=== PATIENT | female | born 1935 | race Caucasian/White ===

== ENCOUNTER → 2017-02-05 | Outpatient (CLI) | payer OTHER ==
[~2017-02-05] MED LIST: ATENOLOL25 MG PO; DONEPEZIL HCL10 MG PO; DOXYCYCLINE100 M3 PO; FLUOXETINE20 MG PO; HYDROXYCHLOROQ200 M1 PO; IBU800 M1 PO; LASIX40 MG PO; LEVOTHYROXINE0.1 M1 PO; LISINOPRIL10 MG PO; MOBIC15 MG PO; PANTOPRAZOLE SO40 MG PO; PLAQUENIL200 MG PO; PROZAC10 MG PO; SIMVASTATIN80 MG PO; SYNTHROID0.1 MG PO; TYLENOL ARTHRI650 MG PO; ZOCOR80 MG PO
== END | disposition home or self-care (01) ==
LOC: RAD 14:39
DX: J43.9 Emphysema, unspecified (principal); K44.9 Diaphragmatic hernia without obstruction or gangrene; I51.7 Cardiomegaly; Q25.46 Tortuous aortic arch; M51.34 Other intervertebral disc degeneration, thoracic region; M40.294 Other kyphosis, thoracic region; Z98.890 Other specified postprocedural states

== ENCOUNTER 2017-06-04 11:17 | Inpatient (IN) | payer OTHER ==
[~2017-06-04] VITALS: Ht 152.4 cm; Wt 49.0 kg
[2017-06-04] VITALS (10 sets, daily range): BP systolic 141–187; BP diastolic 49–79
[2017-06-04 11:54] LABS: BASO % 0.4 % (0.0-1.0); EOS # 0.1 10*3/uL (0.0-0.4); EOS % 1.1 % (1.0-4.0); HEMATOCRIT 37.8 % (37.0-47.0); HEMOGLOBIN 12.8 g/dl (12.0-16.0); LYMPH # 1.4 10*3/uL (1.3-4.4); LYMPH % 14.7 % (27.0-41.0); MEAN CELL VOLUME 94.3 fl (81.0-99.0); MEAN CORPUSCULAR HGB 31.9 pg (27.0-31.0); MEAN CORPUSCULAR HGB CONC 33.9 g/dl (33.0-37.0); MEAN PLATELET VOLUME 9.7 fl (9.6-12.3); MONO # 0.6 10*3/uL (0.1-1.0); MONO % 6.5 % (3.0-9.0); NEUT # 7.3 10*3/uL (2.3-7.9); PLATELET COUNT AUTOMATED 180 10*3/uL (130-400); RED BLOOD COUNT 4.01 10*6/uL (4.10-5.10); WHITE BLOOD COUNT 9.5 10*3/uL (4.8-10.8)
[2017-06-04 12:11] LABS: ALBUMIN 3.6 gm/dl (3.1-4.5); ALKALINE PHOSPHATASE 92 U/L (45-117); BUN 20 mg/dl (7-24); CHLORIDE 103 mmol/L (98-107); CREATININE 0.69 mg/dL (0.55-1.02); POTASSIUM 3.7 mmol/L (3.5-5.1); SGOT/AST 23 IU/L (3-35); SGPT/ALT 13 U/L (12-78); SODIUM 139 mmol/L (136-145); TOTAL PROTEIN 7.4 gm/dL (6.4-8.2)
[2017-06-04 12:12] LABS: TROPONIN I < 0.015 ng/ml (<0.045)
[2017-06-04] MEDS ORDERED: SIMVASTATIN80 MG PO (15:34)
[2017-06-04] MEDS ORDERED: BENTYL10 MG PO (15:35)
[2017-06-04] MEDS ORDERED: NAMZARIC 28 MG1 EACH PO (15:37)
[2017-06-04] MEDS ORDERED: IRON325 M1 PO (15:37)
[2017-06-04] MEDS ORDERED: VITAMIN D5000 UNIT PO (15:38)
[2017-06-04] MEDS ORDERED: PROBIOTIC & AC1 EACH PO (15:43)
[2017-06-04] MEDS ORDERED: BLACK COHOSH40 M2 PO (15:45)
[2017-06-05] VITALS: BP 148/50
[2017-06-05 04:00] VITALS: BP 145/51
[2017-06-05 06:01] LABS: BASO % 0.6 % (0.0-1.0); EOS # 0.2 10*3/uL (0.0-0.4); EOS % 2.7 % (1.0-4.0); HEMATOCRIT 34.7 % (37.0-47.0); HEMOGLOBIN 11.7 g/dl (12.0-16.0); LYMPH # 1.3 10*3/uL (1.3-4.4); LYMPH % 19.1 % (27.0-41.0); MEAN CELL VOLUME 96.9 fl (81.0-99.0); MEAN CORPUSCULAR HGB 32.7 pg (27.0-31.0); MEAN CORPUSCULAR HGB CONC 33.7 g/dl (33.0-37.0); MEAN PLATELET VOLUME 9.7 fl (9.6-12.3); MONO # 0.6 10*3/uL (0.1-1.0); MONO % 8.5 % (3.0-9.0); NEUT # 4.6 10*3/uL (2.3-7.9); PLATELET COUNT AUTOMATED 163 10*3/uL (130-400); RED BLOOD COUNT 3.58 10*6/uL (4.10-5.10); RED CELL DISTRI WIDTH 13.2 % (0-14.5); WHITE BLOOD COUNT 6.7 10*3/uL (4.8-10.8)
[2017-06-05 06:31] LABS: BUN 18 mg/dl (7-24); CHLORIDE 105 mmol/L (98-107); CHOLESTEROL 160 mg/dL (<200); CREATININE 0.58 mg/dL (0.55-1.02); PHOSPHOROUS 3.2 mg/dL (2.5-4.9); POTASSIUM 4.1 mmol/L (3.5-5.1); SGOT/AST 19 IU/L (3-35); SGPT/ALT 13 U/L (12-78); SODIUM 142 mmol/L (136-145)
[2017-06-05 06:38] LABS: ALKALINE PHOSPHATASE 77 U/L (45-117); FREE T4 1.38 ng/dl (0.76-1.46); HDL CHOLESTEROL 97 mg/dl (40-60); LDL CHOLESTEROL 50 mg/dL (9-159); TOTAL PROTEIN 6.3 gm/dL (6.4-8.2); TRIGLYCERIDES 64 mg/dl (<150); VLDL CHOLESTEROL 13 mg/dL (6-40)
[2017-06-05 08:00] VITALS: BP 138/52
[2017-06-05 08:24] LABS: VITAMIN D, 25-HYDROXY 69.2 ng/mL (30-100)
[2017-06-05 12:00] VITALS: BP 129/58
[2017-06-05] MEDS ORDERED: LISINOPRIL20 MG PO (13:14)
== END 2017-06-05 14:45 | disposition home or self-care (01) | DRG 305 ==
LOC: ED 11:17 → 5E 13:04 → EDHOLD 13:04 → 5E 13:31
PROVIDERS: Hospitalist; Nurse Practitioner Family; ADMIT Internal Medicine
DX: I16.0 Hypertensive urgency (principal); F03.90 Unspecified dementia, unspecified severity, without behavioral disturbance, psychotic disturbance, mood disturbance, and anxiety; M06.00 Rheumatoid arthritis without rheumatoid factor, unspecified site; E03.9 Hypothyroidism, unspecified; F41.8 Other specified anxiety disorders; I10 Essential (primary) hypertension; K21.9 Gastro-esophageal reflux disease without esophagitis; E78.2 Mixed hyperlipidemia; Z88.0 Allergy status to penicillin; Z88.2 Allergy status to sulfonamides; Z91.81 History of falling; Z85.42 Personal history of malignant neoplasm of other parts of uterus; Z98.891 History of uterine scar from previous surgery; Z90.49 Acquired absence of other specified parts of digestive tract; Z98.51 Tubal ligation status; Z82.49 Family history of ischemic heart disease and other diseases of the circulatory system; Z82.5 Family history of asthma and other chronic lower respiratory diseases; Z90.710 Acquired absence of both cervix and uterus; Z79.899 Other long term (current) drug therapy

== ENCOUNTER 2018-02-18 09:53 | Inpatient (IN) | payer OTHER ==
[~2018-02-18] VITALS: Ht 152.4 cm; Wt 48.6 kg
[2018-02-18] VITALS (13 sets, daily range): BP systolic 110–196; BP diastolic 41–69
--- NOTE | ~2018-02-18 | EKG ---
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
--- NOTE | ~2018-02-18 | O ---
[place], [place] OPERATIVE NOTE NAME: ELIZABETH JACKSON UNIT #: [id number] ROOM: 428 DOCTOR: SABRINA WILD,MESERET BIRTHDATE: [birth year] DOS: 02/18/2018 INDICATION: An 82 years old presented with chief complaint of lower GI bleed. Case has been discussed with her son. She is not on any blood thinners including anticoagulants or antiplatelets. The patient has been on iron, darker stool in general. However, at this time, she has had red blood in the stool. PROCEDURE: Today's procedure part of investigation is colonoscopy. PREMEDICATION: Propofol. SCOPE: Olympus forward-viewing colonoscope 10L video. REPORT: After putting the patient in left lateral position and application of lubricant to the scope, the scope was introduced. Thereafter, under direct visualization, advanced through the length of colon with some difficulty. However, scope was negotiated to mid transverse colon, diverticulosis and retained solid stool was encountered, left side of the colon appears to be benign. Diverticulosis is [id number]. No point of bleeding was noticed. There was no residual blood in the colon. There was no gross hemorrhoids. The patient extubated, tolerated the procedure well. IMPRESSION: Limited colonoscopy, diverticulosis, retained stool, no active bleeding noticed. This patient most likely has bled from a superficial abrasion to the rectal vasculature. PLAN: At the present time, I am going to go ahead and feed her soft diet to regular as tolerated. Another set of H and H can be done tomorrow. If there is no drop, then she can be discharged. Thank you very much indeed. MESERET BENNETT MD CM:OPRECORD:OPERATIVE NOTE [id number] [id number] MESERET BENNETT MD 02/19/18 0237 interface
--- NOTE | ~2018-02-18 | CON ---
[place], [place] REPORT OF CONSULTATION NAME: ELIZABETH JACKSON UNIT #: [id number] ROOM: 428 DOCTOR: SABRINA WILDMESERET BIRTHDATE: [birth year] DOS: 02/18/2018 GASTROENDOSCOPIC CONSULTATION HISTORY OF PRESENT ILLNESS: An 82 years old lady, who has presented with the family to Emergency Room with complaint of bright blood per rectum, they are concerned. The patient has not been on blood thinners. The patient's H and H has been 11.6 and 35.3. INR was 1.0. Comprehensive metabolic panel, GFR greater than 60. Electrolytes balance, liver function test normal. Troponin within normal limit. PAST MEDICAL HISTORY: Hypertension, hyperlipidemia, dementia, depression, hypothyroidism, rheumatoid arthritis, and uterine CA. PAST SURGICAL HISTORY: Appendectomy, hysterectomy, exploratory laparotomy, cholecystectomy, , and incisional hernia repair. SOCIAL HISTORY: Nonsmoker, nonalcohol consumer. FAMILY HISTORY: Supportive family, unrelated to her presentation. ALLERGIES: PENICILLIN AND SULFA. MEDICATIONS: List has been reviewed. There are no anticoagulants or antiplatelets on board. The patient has been on ferrous sulfate 325 mg. REVIEW OF SYSTEMS: In general, cannot be obtained from her due to cognitive compromise. PHYSICAL EXAMINATION: GENERAL: Reveals a comfortable patient, not toxic. VITAL SIGNS: Stable, afebrile. HEENT: Head normocephalic, nontraumatic. Mouth and buccal mucosa benign. Nose nonobstructed, nondeviated. No evidence of bleeding. NECK: Supple, no thyromegaly, no cervical lymphadenopathy. CHEST: Symmetric anatomy, no wheeze, no rhonchi. HEART: Normal sinus rhythm, no gallop, no murmur. ABDOMEN: Soft. No hepato-organomegaly. Bowel sounds present. No pulsatile mass. EXTREMITIES: No cyanosis, no pedal edema. NEUROLOGIC: Alert, slow orientation, and hard of hearing. Labs reviewed, records reviewed. CBC, H and H of 11 and 35, white blood cells 6.5. Otherwise, records have been reviewed. Troponin has been negative. IMPRESSION: Lower gastrointestinal bleed, etiology to be defined, dementia, hypertension, anxiety, depression, hypothyroidism, and osteoarthritis. PLAN: We are going to proceed with colonoscopy. [place], [place] REPORT OF CONSULTATION NAME: ELIZABETH JACKSON UNIT #: [id number] ROOM: 428 DOCTOR: SABRINA WILD,MESERET BIRTHDATE: [birth year] Thank you very much indeed. MESERET BENNETT MD CM:CONSTR:REPORT OF CONSULTATION 1545 02/19/18 0229 interface
[~2018-02-18 09:53] MED LIST changes: +BENTYL10 MG PO; +BLACK COHOSH40 M2 PO; +IRON325 M1 PO; +LISINOPRIL20 MG PO; +NAMZARIC 28 MG1 EACH PO; +PROBIOTIC & AC1 EACH PO; +VITAMIN D5000 UNIT PO
[2018-02-18 10:27] LABS: BASO % 0.6 % (0.0-1.0); EOS # 0.1 10*3/uL (0.0-0.4); EOS % 1.4 % (1.0-4.0); HEMATOCRIT 35.3 % (37.0-47.0); HEMOGLOBIN 11.6 g/dl (12.0-16.0); LYMPH # 1.1 10*3/uL (1.3-4.4); LYMPH % 17.4 % (27.0-41.0); MEAN CORPUSCULAR HGB 31.9 pg (27.0-31.0); MEAN CORPUSCULAR HGB CONC 32.9 g/dl (33.0-37.0); MEAN PLATELET VOLUME 9.6 fl (9.6-12.3); MONO # 0.5 10*3/uL (0.1-1.0); MONO % 8.3 % (3.0-9.0); NEUT # 4.7 10*3/uL (2.3-7.9); PLATELET COUNT AUTOMATED 157 10*3/uL (130-400); RED BLOOD COUNT 3.64 10*6/uL (4.10-5.10); RED CELL DISTRI WIDTH 13.2 % (0-14.5); WHITE BLOOD COUNT 6.5 10*3/uL (4.8-10.8)
[2018-02-18 10:39] LABS: ACT PARTIAL THROMBO TIME 24.7 SECONDS (20.8-31.5)
[2018-02-18 10:51] LABS: ALKALINE PHOSPHATASE 80 U/L (45-117); BUN 18 mg/dl (7-24); CHLORIDE 107 mmol/L (98-107); CREATININE 0.62 mg/dL (0.55-1.02); POTASSIUM 3.9 mmol/L (3.5-5.1); SGOT/AST 17 IU/L (3-35); SGPT/ALT 11 U/L (12-78); SODIUM 140 mmol/L (136-145); TOTAL PROTEIN 6.7 gm/dL (6.4-8.2)
[2018-02-18] MEDS ORDERED: OMEPRAZOLE40 MG PO (12:46)
[2018-02-19] VITALS: BP 142/68; BP 188/62
[2018-02-19 06:31] LABS: BASO % 0.5 % (0.0-1.0); EOS # 0.1 10*3/uL (0.0-0.4); EOS % 1.6 % (1.0-4.0); HEMATOCRIT 33.5 % (37.0-47.0); HEMOGLOBIN 11.1 g/dl (12.0-16.0); LYMPH # 1.3 10*3/uL (1.3-4.4); LYMPH % 20.6 % (27.0-41.0); MEAN CELL VOLUME 96.5 fl (81.0-99.0); MEAN CORPUSCULAR HGB CONC 33.1 g/dl (33.0-37.0); MONO # 0.5 10*3/uL (0.1-1.0); MONO % 7.5 % (3.0-9.0); NEUT # 4.3 10*3/uL (2.3-7.9); NEUT % 69.5 % (47.0-73.0); PLATELET COUNT AUTOMATED 154 10*3/uL (130-400); RED BLOOD COUNT 3.47 10*6/uL (4.10-5.10); RED CELL DISTRI WIDTH 13.1 % (0-14.5); WHITE BLOOD COUNT 6.1 10*3/uL (4.8-10.8)
[2018-02-19 06:52] LABS: ALBUMIN 2.8 gm/dl (3.1-4.5); ALKALINE PHOSPHATASE 78 U/L (45-117); BUN 14 mg/dl (7-24); CHLORIDE 108 mmol/L (98-107); CHOLESTEROL 133 mg/dL (<200); CREATININE 0.46 mg/dL (0.55-1.02); FREE T4 1.55 ng/dl (0.76-1.46); HDL CHOLESTEROL 72 mg/dl (40-60); LDL CHOLESTEROL 49 mg/dL (9-159); PHOSPHOROUS 2.8 mg/dL (2.5-4.9); POTASSIUM 3.4 mmol/L (3.5-5.1); SGOT/AST 15 IU/L (3-35); SGPT/ALT 9 U/L (12-78); SODIUM 142 mmol/L (136-145); TOTAL PROTEIN 5.9 gm/dL (6.4-8.2); TRIGLYCERIDES 61 mg/dl (<150); VLDL CHOLESTEROL 12 mg/dL (6-40)
[2018-02-19 07:54] LABS: VITAMIN D, 25-HYDROXY 89.6 ng/mL (30-100)
[2018-02-19 12:00] VITALS: BP 170/90
== END 2018-02-19 12:52 | disposition home or self-care (01) | DRG 378 ==
LOC: ED 09:53 → EDHOLD 11:16 → 4E 11:30
PROVIDERS: Internal Medicine; Nurse Practitioner Family
PROC: 0DJD8ZZ Inspection of Lower Intestinal Tract, Via Natural or Artificial Opening Endoscopic (ICD-10-PCS; principal; 2018-02-18)
DX: K92.2 Gastrointestinal hemorrhage, unspecified (principal); E44.0 Moderate protein-calorie malnutrition; K56.7 Ileus, unspecified; D64.9 Anemia, unspecified; K62.89 Other specified diseases of anus and rectum; R73.9 Hyperglycemia, unspecified; F03.90 Unspecified dementia, unspecified severity, without behavioral disturbance, psychotic disturbance, mood disturbance, and anxiety; F41.8 Other specified anxiety disorders; E03.9 Hypothyroidism, unspecified; E78.5 Hyperlipidemia, unspecified; K57.90 Diverticulosis of intestine, part unspecified, without perforation or abscess without bleeding; I10 Essential (primary) hypertension; M06.9 Rheumatoid arthritis, unspecified; M19.90 Unspecified osteoarthritis, unspecified site; K21.9 Gastro-esophageal reflux disease without esophagitis; Z79.899 Other long term (current) drug therapy; Z85.42 Personal history of malignant neoplasm of other parts of uterus; Z90.49 Acquired absence of other specified parts of digestive tract; Z90.710 Acquired absence of both cervix and uterus; Z98.891 History of uterine scar from previous surgery; Z88.0 Allergy status to penicillin; Z88.2 Allergy status to sulfonamides; Z82.49 Family history of ischemic heart disease and other diseases of the circulatory system; Z80.8 Family history of malignant neoplasm of other organs or systems

== ENCOUNTER 2018-10-18 10:07 | Inpatient (IN) | payer OTHER ==
[~2018-10-18] VITALS: Ht 154.9 cm; Wt 45.1 kg
--- NOTE | ~2018-10-18 | PR ---
[place], [place] PROGRESS NOTE NAME: ELIZABETH JACKSON UNIT #: [id number] ROOM: 426 DOCTOR: ASHANTI WILD,DANIELLA Campuzano BIRTHDATE: [birth year] DOS: SUBJECTIVE: The patient barely opens her eyes when spoken to and touched. OBJECTIVE: VITAL SIGNS: Blood pressure 150/80, heart rate of 100 beats per minute, afebrile. GENERAL: The patient barely wakes up. Generalized weakness and lethargy, but able to move all her extremities. IMPRESSION: 1. The patient with acute dehydration and disability, unable to eat and swallow, has been hydrated with IV fluids. She does wake up, but otherwise very weak. The patient is being considered for hospice and situation has been discussed with patient's daughter. 2. Advanced adult failure to thrive and ambulatory dysfunction. The patient works with physical therapy. 3. Swallowing dysfunction. The patient is being followed by Speech Therapy and kept n.p.o. 4. Late onset Alzheimer's type dementia, be treated with Exelon patch. 5. Hypothyroidism, being replaced with IV thyroid. 6. Benign essential hypertension. Blood pressures are improving with full dose of clonidine patch. DANIELLA BURRELL MD CM:PNTRANS [id number] DANIELLA BURRELL MD 10/22/18 0642 interface
--- NOTE | ~2018-10-18 | DS ---
[place], [place] DISCHARGE SUMMARY NAME: ELIZABETH JACKSON UNIT #: [id number] ROOM: 426 DOCTOR: DANIELLA BURRELL MD BIRTHDATE: [birth year] DOS: 10/22/2018 DISCHARGE DIAGNOSES: 1. The patient is being discharged to hospice inpatient care. 2. Acute dehydration from inability to eat and swallow, swallowing dysfunction. 3. Advanced adult failure to thrive and ambulatory dysfunction. 4. Late onset Alzheimer's-type dementia. 5. Hypothyroidism. 6. Benign essential hypertension. 7. Mixed hyperlipidemia. HOSPITAL COURSE: The patient admitted to [facility] with a decline in her health status, urinary tract infection, not eating and getting dehydrated, very weak and unable to ambulate. After admission, the patient was treated for urinary tract infection with intravenous Zosyn hydration with normal saline and also peripheral parenteral nutrition was started. Urine cultures grew no bacteria and a consult was obtained with infectious disease specialist and they agreed with hospice consultation. Detailed discussion was held with the patient's daughter and family and they have requested the patient to be admitted to hospital under hospice care for end of life management. 1. Advanced adult failure to thrive. The patient worked with physical therapy and took bedsore and fall precautions. 2. Swallowing dysfunction. The patient underwent modified barium swallowing study and Speech Therapy were consulted and the patient could not tolerate any swallowing function and she was kept n.p.o. 3. Late onset Alzheimer's-type dementia, was treated with Exelon patch. 4. Hypothyroidism was treated with thyroid supplements intravenously. 5. Benign essential hypertension. Blood pressures were managed by clonidine patch. 6. Fevers were controlled with Tylenol rectally as needed. DISCHARGE MANAGEMENT: Clonidine patch 0.3 mg weekly. The patient to be kept on morphine and Ativan and atropine drops under hospice care. LABORATORY DATA: White cell count of 13,400, dropped from 20,000 at admission. BUN and creatinine 30 and 0.49. Sodium elevated at 155. Urine cultures were negative. Protein-calorie malnutrition, which is severe with an albumin level of 2.4 and declining. [place], [place] DISCHARGE SUMMARY NAME: ELIZABETH JACKSNO UNIT #: [id number] ROOM: 426 DOCTOR: DANIELLA BURRELL MD BIRTHDATE: [birth year] DANIELLA BURRELL MD CM:LOIS [id number] DANIELLA BURRELL MD 10/22/18 1537 interface
--- NOTE | ~2018-10-18 | PROC NOTE ---
[place], [place] PROCEDURE NOTE NAME: ELIZABETH JACKSON UNIT #: [id number] ROOM: 412 DOCTOR: MILDRED CARRILLO BIRTHDATE: [birth year] DOS: 10/18/2018 MODIFIED BARIUM SWALLOW LOCATION: [facility]. ROOM: [facility]. BED: 1. ORDERING PHYSICIAN: Dr. Dhaliwal. RADIOLOGIST: Dr. Norman. BACKGROUND INFORMATION: The patient is an 83-year-old female who was seen for a modified barium swallow. This test was ordered to rule out aspiration as the patient has been noted with difficulty swallowing. The patient was admitted to the hospital with inability to ambulate and failure to thrive. She was recently hospitalized here from 10/07/2018-10/11/2018 with diagnoses including UTI, flu, and metabolic encephalopathy. Further significant medical history on this patient includes dementia, GERD, and hypertension. The patient is currently n.p.o. For today's assessment, the patient was alert, but with significant generalized weakness and fatigue. She was able to follow simple commands. Oral peripheral examination revealed edentulous status. Dry oral cavity was observed. Lingual and labial strength and range of motion were impaired. The patient was able to volitionally swallow; however, this was slow and weak. The patient was not receiving oxygen and respiratory status at rest appeared within functional limits. METHODS AND MATERIALS USED FOR THE EXAM: The patient was positioned in the lateral plane and the exam was viewed under fluoroscopy. The patient was presented with a variety of consistencies to assess swallowing skills including applesauce mixed with barium presented in quarter and half teaspoon amounts and nectar thick barium taken by spoon. ORAL PHASE: Reduced labial seal was observed with anterior loss noted. Bolus formation and transit were poor across consistencies. Transfer of the bolus was significantly impaired and appeared to move through the oral cavity with thick liquid by gravity. Piecemeal swallow was observed with pureed consistency. PHARYNGEAL PHASE: The pharyngeal swallow was noted to be weak and delayed with each consistency. There was no penetration or aspiration occurring with any consistency during this study. Residue was observed throughout the pharynx post-swallow. ESOPHAGEAL PHASE: This phase of the swallow was not formally assessed during this exam. IMPRESSION AND RECOMMENDATIONS: Based upon assessment results, this 83-year-old patient presents with a severe oral and moderate pharyngeal stage dysphagia. [place], [place] PROCEDURE NOTE NAME: ELIZABETH JACKSON UNIT #: [id number] ROOM: 412 DOCTOR: MILDRED CARRILLO BIRTHDATE: [birth year] Oral propulsion was poor across all trials. Piecemeal swallow was observed with the pureed. Her pharyngeal swallow was weak and delayed. Residue throughout the pharynx was observed across consistencies. The patient presents at high risk for aspiration. It is doubtful that she will be able to maintain nutrition orally due to her significant weakness, fatigue and severity of swallowing skills. N.p.o. is recommended at this time. In direct therapy will be conducted in an attempt to work toward improvement of safe swallow skills. Results and recommendations were shared with the patient's nurse who verbalized understanding. Thank you very much for this referral. Should you have any questions regarding this patient, please contact the speech pathologist at [phone]. MILDRED CARRILLO CM:PROCNOTE:PROCEDURE NOTE [id number] 1621 MILDRED CARRILLO
--- NOTE | ~2018-10-18 | WRIGHTHP ---
[place], [place] PATIENT HISTORY AND PHYSICAL EXAM NAME: ELIZABETH JACKSON [facility] #: [id number] UNIT #: [id number] ROOM: 412 DOCTOR: DANIELLA BURRELL MD BIRTHDATE: [birth year] DOS: 10/19/2018 HISTORY OF PRESENT ILLNESS: The patient is an 83-year-old female transferred from assisted living facility to [facility] for being unable to eat and appeared dehydrated. The patient's BUN and creatinine were found to be elevated to 45 and 0.89, and the patient was lethargic, much weaker than she was a few days earlier and she was not eating or drinking anything for a few days. The patient was admitted for further management with a DNR-CC code status. The patient was found to be dehydrated and having a urinary tract infection with a white cell count elevated to 20,000. No recent chest pain, shortness of breath, no GI or urinary symptoms, but the patient was found to have a residual of 600 mL when we performed a straight catheterization at the hospital. REVIEW OF SYSTEMS: CARDIOVASCULAR: No chest pains or palpitations. GASTROINTESTINAL: The patient unable to swallow, but otherwise no nausea, vomiting, diarrhea, or constipation. RESPIRATORY: No wheezing and shortness of breath. FAMILY HISTORY: Noncontributory. HOME MEDICATIONS: The patient was on vitamin D, Colace, iron, Plaquenil, Levothyroxine, lisinopril, Namzaric, omeprazole and simvastatin. ALLERGIES: Known allergies to PENICILLIN AND SULFA. FAMILY HISTORY: Noncontributory. PHYSICAL EXAMINATION: GENERAL: The patient is lethargic, in no visible distress. VITAL SIGNS: Blood pressure 155/61, heart rate of 83 beats per minute, breathing 20 times per minute, temperature 98.3 degrees Fahrenheit. CENTRAL NERVOUS SYSTEM: The patient with generalized weakness, cachexia and lethargic. Otherwise, able to move all extremities. LABORATORY DATA: White cell count of 13,700, reduced from 20,000 yesterday. BUN and creatinine were 45 and 0.89. Albumin low at 2.4. Barium swallowing study showed the patient unable to swallow. IMPRESSION: 1. Advanced adult failure to thrive, inability to swallow with urinary tract infection, delirium and lethargy, to be treated with IV antibiotics, hydration and normal saline, peripheral parenteral nutrition and the patient to be kept DNR-CC per her code status and followed closely. I made a call to Fabienne, her daughter and would like to discuss the patient's condition with her in detail. 2. Late onset Alzheimer's type dementia. We will continue Exelon patch. 3. Gastroesophageal reflux disease and esophagitis to be treated with IV Protonix. 4. Hypothyroidism. I will convert her levothyroxine to IV and continue [place], [place] PATIENT HISTORY AND PHYSICAL EXAM NAME: ELIZABETH JACKSON UNIT #: [id number] ROOM: [facility] DOCTOR: ASHANTI WILD,DANIELLA Campuzano BIRTHDATE: [birth year] treatment. 5. Mixed hyperlipidemia. Simvastatin is on hold. PLAN: The patient with significant adult failure to thrive and if she does not recover within a few days of initial treatment with hydration and nutrition, hospice consult will be considered. DANIELLA BURRELL MD CM:HISPHYS:PATIENT HISTORY AND PHYSICAL EXAMINATION 1027 1054 DANIELLA BURRELL MD 10/19/18 1053 interface
--- NOTE | ~2018-10-18 | CON ---
[place], [place] REPORT OF CONSULTATION NAME: ELIZABETH JACKSON UNIT #: [id number] ROOM: 412 DOCTOR: KARRI FARRELL MD BIRTHDATE: [birth year] DOS: 10/18/2018 REASON FOR CONSULTATION: Sepsis. CHIEF COMPLAINT: Transferred from skilled nursing because of difficulty in eating. HISTORY OF PRESENTING ILLNESS: This is an 83-year-old female who is coming from a skilled nursing facility because of difficulty in feeding and overall sick. The patient is not the best historian and currently very tired. History obtained is from her son who is at the bedside and has been taking care of her in last few days and has seen at skilled nursing. According to him, she is not complaining of any fever, chest pain, shortness of breath, cough; however, she had more difficulty eating a week ago. She was able to eat all by herself and had a good appetite, but lately her appetite has gone down and she was not able to swallow. She has failed a bedside swallow eval also and possibly may need TPN. She was recently in the hospital and was treated for urinary tract infection as well as influenza and pneumonia, discharged on October 11 on Levaquin, Tamiflu. At this time on admission, it was found after Shirley replacement, she had 600 mL of urine retention. Her urinalysis shows 5-10 wbc's. Her urine cultures are in process. Recent admission on October 07, her urine grew 50,000 colonies of E. coli, which was pansensitive. She is PENICILLIN allergic, got Levaquin and had some choking-like sensation, itching and was changed to clindamycin, although she tolerated Levaquin few days ago. Her sputum cultures during last admission had heavy growth of Staph aureus, which was an MSSA. Her chest x-ray on October 07 showed no acute cardiopulmonary process and a repeat chest x-ray done today shows similar presentation. PAST MEDICAL HISTORY: Significant for dementia, small-bowel obstruction, hyperlipidemia, hypertension, hypothyroidism. PAST SURGICAL HISTORY: Includes history of ex-lap, hysterectomy, appendectomy, , cholecystectomy, incisional hernia repair. SOCIAL HISTORY: Include nonalcoholic, nonsmoker. No illicit drug use. FAMILY HISTORY: Father . Mother of emphysema. ALLERGIES: PENICILLIN, unclear kind of allergy; SULFA ANTIBIOTICS as well. HOME MEDICATIONS: Reviewed. REVIEW OF SYSTEMS: A 12-point review of systems has been done. Pertinent negatives and positives included in HPI, rest are noncontributory. PHYSICAL EXAMINATION: VITAL SIGNS: Current vitals include temperature 97.2, pulse rate of 92, respiratory rate 16, blood pressure 126/50, oxygen saturation 99% on room air. GENERAL: The patient is awake, but not completely alert and oriented. HEENT: Atraumatic, normocephalic. Currently whitish discoloration around her mouth because of the barium swallow test she had. Not cooperative for further [place], [place] REPORT OF CONSULTATION NAME: ELIZABETH JACKSON UNIT #: [id number] ROOM: 412 DOCTOR: KARRI FARRELL MD BIRTHDATE: [birth year] oral exam. CHEST: Air entry bilaterally equal. No wheeze or crackles. CARDIOVASCULAR: S1, S2 normal. No murmur, rubs or gallop. ABDOMEN: Soft, nontender, nondistended. EXTREMITIES: No pedal edema. NEUROLOGIC: Grossly intact. LABORATORY DATA AND IMAGING: Noted, mentioned in HPI. ASSESSMENT AND PLAN: 1. Leukocytosis, sepsis versus reactive, likely from dehydration. She has been recently treated for urinary tract infection with Escherichia coli, which was pansensitive and tolerated Levaquin at that time. 2. She has developed urinary retention. I would order a bladder scan and see if she has urinary retention. If she still has large amount of urine would recommend Shirley catheter placement for a few days. 3. Dysphagia. Currently the patient is on TPN. 4. I would hold off on antibiotics. She is not having any overt sign of sepsis. Continue to watch her off antibiotics and we will see improvement with hydration and fluid management. I discussed with the son as well. Thank you for your consult. Please call for any questions. Karri Farrell MD CM:CONSTR:REPORT OF CONSULTATION 174 10/18/18 9934 interface
--- NOTE | ~2018-10-18 | PR ---
[place], [place] PROGRESS NOTE NAME: ELIZABETH JACKSON UNIT #: [id number] ROOM: 412 DOCTOR: DANIELLA BURRELL MD BIRTHDATE: [birth year] DOS: 10/20/2018 SUBJECTIVE: The patient is very weak and lethargic, barely wakes up with stimulus. OBJECTIVE: VITAL SIGNS: Blood pressure 144/66, heart rate of 108 beats per minute, breathing 18 times per minute, afebrile. GENERAL APPEARANCE: The patient is alert and oriented x 3, in no visible distress, except for lethargy, generalized weakness, muscle wasting and emaciation. HEENT AND NECK: Exam within normal limits. CARDIOVASCULAR SYSTEM: Heart rate is regular in rate and rhythm. S1 and S2 normally audible. LUNGS: Clear to auscultation. ABDOMEN: Soft, nontender. No obvious organomegaly. Bowel sounds are present. EXTREMITIES: Without significant cyanosis or edema. IMPRESSION AND PLAN: 1. The patient with acute dehydration and inability to eat and swallow and drink. The patient's power of nursery helper and daughter have decided against tube feeding. The patient is being hydrated with IV fluids and was given peripheral parenteral nutrition yesterday until she became volume overloaded. The patient's hydration and nutrition was stopped and I am restarting her on normal saline for hydration. 2. The patient is being considered for hospice end of life care if she does not start eating soon. 3. Advance adult failure to thrive and ambulatory dysfunction. We are taking bedsore precautions, turning her every 2 hours and using air mattress. 4. Swallowing dysfunction. The patient is unable to eat, seen by Speech Therapy. 5. Late onset Alzheimer's type dementia, treated with Exelon patch. 6. Hypothyroidism. Thyroid is being replaced intravenously. 7. Benign essential hypertension, elevated blood pressures are being controlled with clonidine patch. [place], [place] PROGRESS NOTE NAME: ELIZABETH JACKSON UNIT #: [id number] ROOM: 412 DOCTOR: DANIELLA BURRELL MD BIRTHDATE: [birth year] DANIELLA BURRELL MD CM:[id number] DANIELLA BURRELL MD 10/20/18 1844 interface
[2018-10-18 10:05] VITALS: BP 154/59
--- NOTE | 2018-10-18 10:05 | NUR ---
A 83, admitted to , under the services of Dr. ASHANTI WILD,DANIELLA Campuzano with a diagnosis of FAILURE TO THRIVE, UNABLE TO AMBULATE. Chief complaint is PAIN. [facility] Monitor applied. Initial assessment completed. Vital signs taken and recorded. DR. ASHANTI WILD,DANIELLA Campuzano notified of admission to the unit. Orders received. See assessment for past medical history, medications and allergies. Patient and/or family oriented to unit. [facility] visitation policy reviewed. Clothing/patient valuable form completed. DEAN JEFF
[~2018-10-18 10:07] MED LIST changes: +BLACK COHOSH EX80 MG PO; +LEVOFLOXACIN750 M2 PO; +LEVOTHYROXINE100 MC1 PO; +OMEPRAZOLE40 MG PO; +PROBIOTIC1 EAC1 PO; +STOOL SOFTENER250 M2 PO; +TAMIFLU 75MG CA75 MG PO; +VITAMIN D5000 UNI1 PO; +Zestril,Prinivi40 MG PO
[2018-10-18] MEDS ORDERED: IRON325 M1 PO (10:24)
[2018-10-18] MEDS ORDERED: NAMZARIC 28 MG1 EACH PO (10:26)
--- NOTE | 2018-10-18 10:47 | NUR ---
NEW ORDERS RECEIEVED FROM . SEE LABS, MEDS, CONSULTS.
--- NOTE | 2018-10-18 11:56 | NUR ---
PHYSICAL THERAPY Nursing screen received. PT orders also received. Thank you. Evangelina Child,PT
[2018-10-18 12:00] VITALS: BP 174/49
[2018-10-18 12:42] LABS: HEMATOCRIT 46.8 % (37.0-47.0); HEMOGLOBIN 15.6 g/dl (12.0-16.0); MEAN CELL VOLUME 97.9 fl (81.0-99.0); MEAN CORPUSCULAR HGB 32.6 pg (27.0-31.0); MEAN CORPUSCULAR HGB CONC 33.3 g/dl (33.0-37.0); MEAN PLATELET VOLUME 9.4 fl (9.6-12.3); PLATELET COUNT AUTOMATED 301 10*3/uL (130-400); RED BLOOD COUNT 4.78 10*6/uL (4.10-5.10); RED CELL DISTRI WIDTH 13.4 % (0-14.5); WHITE BLOOD COUNT 20.2 10*3/uL (4.8-10.8)
[2018-10-18 13:02] LABS: ALBUMIN 2.4 gm/dl (3.1-4.5); ALKALINE PHOSPHATASE 79 U/L (45-117); BUN 45 mg/dl (7-24); CHLORIDE 109 mmol/L (98-107); CREATININE 0.89 mg/dL (0.55-1.02); POTASSIUM 3.8 mmol/L (3.5-5.1); SGOT/AST 25 IU/L (3-35); SGPT/ALT 17 U/L (12-78); SODIUM 143 mmol/L (136-145); TOTAL PROTEIN 7.7 gm/dL (6.4-8.2)
[2018-10-18 13:18] LABS: PLATELET SUFFICIENCY NORMAL (NORMAL); TOTAL CELLS COUNTED 100 #CELLS
--- NOTE | 2018-10-18 14:34 | NUR ---
CALLED FOR WBC OF 20.2. NEW ORDERS OBTAINED. SEE LABS, MAR.
--- NOTE | 2018-10-18 14:37 | NUR ---
LEFT WITH 'S OFFICE. SAID THEY WOULD PAGE HER.
--- NOTE | 2018-10-18 14:38 | NUR ---
PT DOWN FOR CXR AND MBS AT THIS TIME.
--- NOTE | 2018-10-18 14:54 | NUR ---
SPEECH PATHOLOGY MBS completed as per orders. This was ordered due to difficulty swallowing. Patient is currently NPO. Medical hx is significant for failure to thrive, dementia, GERD. Patient was alert during assessment but with significant generalized weakness. She was assessed with puree and nectar thick liquids, taken by spoon. Results revealed severe oral and moderate pharyngeal dysphagia. Oral propulsion was poor across all trials. Piecemeal swallow was observed with puree. The pharyngeal swallow was weak and delayed. There was no penetration or aspiration noted during the study. Residue throughout pharynx was observed across consistencies. Patient presents at high risk for aspiration. It is doubtful that patient will be able to maintain nutrition orally due to her significant weakness, fatigue and severity of swallow. NPO is recommended. Clinician will inform patient's nurse of results and recommendations. Indirect therapy will be conducted in an attempt to work toward improvement of safe swallow skills. Dictated report to follow. Thank you for this referral. MILDRED CARRILLO MSCCC-BOW MACHINE OPERATOR
--- NOTE | 2018-10-18 15:21 | NUR ---
NOTIFIED OF FAILED MBS RESULTS AND RECOMMENDATION OF NPO PER SPEECH. ORDERS FOR SPEECH TO FOLLOW DAILY WITH PT AND PPN. SPOKE WITH HLAEY IN PHARMACY, SAID HE WOULD ORDER IT FOR .
--- NOTE | 2018-10-18 15:43 | NUR ---
IV LEVAQUIN STOPPED AT THIS TIME. THIS NURSE NOTICED REDNESS CLIMBING HER ARM AFTER STARTING IV LEVAQUIN. NO OTHER SXS NOTED. NOTIFIED. ORDERS TO STOP LEVAQUIN AND START CLINDAMYCIN RECEIVED. SEE MAR.
[2018-10-18 15:58] LABS: BILIRUBIN 1+ (NEGATIVE); BLOOD NEGATIVE (NEGATIVE); CLARITY SL CLOUDY (CLEAR); COLOR YELLOW (YELLOW); GLUCOSE NEGATIVE (NEGATIVE); KETONE 1+ (NEGATIVE); LEUKO ESTERASE NEGATIVE (NEGATIVE); NITRITE NEGATIVE (NEGATIVE); PH 5.5 (5.0-9.0); SPECIFIC GRAVITY >= 1.030 (1.005-1.030); UROBILINOGEN 0.2 E.U./dl (0.2-1.0)
[2018-10-18 16:00] VITALS: BP 126/50
[2018-10-18 16:08] LABS: BACTERIA 2+; EPITHELIAL CELLS 0-2; RBC 0-2 rbc/hpf (0-2)
--- NOTE | 2018-10-18 16:48 | NUR ---
IN TO SEE PT AND SPEAKING WITH SON AT THIS TIME.
--- NOTE | 2018-10-18 18:26 | NUR ---
PT NOTED WITH RED, BLANCHABLE MUSHY HEELS. HEEL PROTECTORS APPLIED TO BILAT FEET.
[2018-10-18 20:00] VITALS: BP 153/79
--- NOTE | 2018-10-18 20:18 | NUR ---
SPOKE WITH DR PATEL REGARDING THE REQUESTED BLADDER SCAN RESULTS OF 120ML. NO NEW ORDERS.
--- NOTE | 2018-10-18 22:00 | NUR ---
PT FOUND AWAKE AND RESTLESS WITH BLOOD ON HER SHEETS. PT DID NOT APPEAR TO BE IN ANY DISTRESS BUT IS CONFUSED. IV RESTARTED. 22 IN THE LFA.
[2018-10-19] VITALS: BP 144/74
[2018-10-19 06:16] LABS: BASO % 0.1 % (0.0-1.0); HEMATOCRIT 41.5 % (37.0-47.0); HEMOGLOBIN 13.6 g/dl (12.0-16.0); LYMPH # 1.2 10*3/uL (1.3-4.4); LYMPH % 9.1 % (27.0-41.0); MEAN CELL VOLUME 96.7 fl (81.0-99.0); MEAN CORPUSCULAR HGB 31.7 pg (27.0-31.0); MEAN CORPUSCULAR HGB CONC 32.8 g/dl (33.0-37.0); MEAN PLATELET VOLUME 9.4 fl (9.6-12.3); MONO % 7.5 % (3.0-9.0); NEUT # 11.3 10*3/uL (2.3-7.9); NEUT % 82.9 % (47.0-73.0); PLATELET COUNT AUTOMATED 256 10*3/uL (130-400); RED BLOOD COUNT 4.29 10*6/uL (4.10-5.10); RED CELL DISTRI WIDTH 13.3 % (0-14.5); WHITE BLOOD COUNT 13.7 10*3/uL (4.8-10.8)
[2018-10-19 08:00] VITALS: BP 155/61
--- NOTE | 2018-10-19 09:00 | NUR ---
Facs Teacher in to see patient. She is able to answer few questions. She states she lives at home alone. She is unable to say if she uses an assistive device for ambulation or if she has any medical equipment at home. Discharge plan undecided at this time.
--- NOTE | 2018-10-19 09:15 | NUR ---
SPEECH PATHOLOGY Patient was seen for dysphagia treatment this am. Therapy consisted of indirect tasks to improve swallowing abilities. Patient was able to respond to simple questions, but was significantly weak and easily fatigued. Oral exercises were conducted. Impairments in strength and ROM were displayed as well as fatigue. Oral stimulation was provided and following this patient attempted swallows however she was not able to elicit a complete swallow. Patient stated that she could not swallow. Reports indicate that she had been having recent ongoing swallowing difficulty at the correction prior to admission, and had been eating poorly. Patient remains unsafe for oral intake therefore continued NPO is recommended. Continue therapy plan. MILDRED CARRILLO MSCCC-HOUSE WORKER GENERAL
--- NOTE | 2018-10-19 10:00 | NUR ---
PTS ACCUCATH IN HER L AC IS NOT FUCTIONAL AT THIS TIME. IV WILL BE REMOVED
--- NOTE | 2018-10-19 11:05 | NUR ---
MIKE CATHETER PLACED AT BED SIDE. PT TOLERATED WELL. MIKE DRAINING CLEAR JINA. WILL CONTINUE TO MONITOR.
--- NOTE | 2018-10-19 11:31 | NUR ---
20GUAGE 10CM MIDLINE PLACED RT UPPER ARM ON 2ND ATTEMPT. PT TOLERATED WELL.
--- NOTE | 2018-10-19 11:49 | NUR ---
PHYSICAL THERAPY Patient being bathed at this time. Thank you for this referral. Evangelina Child,PT
[2018-10-19 12:00] VITALS: BP 176/61
--- NOTE | 2018-10-19 12:00 | NUR ---
PT RECIEVED A MIDLINE IN R UPPER ARM. MARCELINO MORAN PLACED IT AT THE BEDSIDE. PT TOLERATED WELL.
--- NOTE | 2018-10-19 14:29 | NUR ---
DR. BURRELL NOTIFIED AFTER PATIENTS 1L BOLUS. AWAITING ORDERS
--- NOTE | 2018-10-19 15:29 | NUR ---
Nursing screen received and chart review completed. Patient hospitalized with inability to eat, failure to thrive and sick. She is on TPN presently. At this time, patient does not seem appropriate for Occupational Therapy. If patient should demonstrate an improvement in status an OT eval may be indicated. Thank you. Karo Murray OTR/usha
[2018-10-19 16:00] VITALS: BP 170/65
--- NOTE | 2018-10-19 17:15 | NUR ---
DR GARCIA NOTIFIED OF PTS HIGH BP OF 170/64. AWAITING ORDERS
[2018-10-19 20:00] VITALS: BP 158/46
--- NOTE | 2018-10-19 20:24 | NUR ---
24 HR CHART CHECK COMPLETE.
[2018-10-20] VITALS: BP 142/63
[2018-10-20 06:22] LABS: BASO % 0.1 % (0.0-1.0); HEMOGLOBIN 13.5 g/dl (12.0-16.0); LYMPH # 1.1 10*3/uL (1.3-4.4); LYMPH % 8.3 % (27.0-41.0); MEAN CELL VOLUME 97.4 fl (81.0-99.0); MEAN CORPUSCULAR HGB 32.1 pg (27.0-31.0); MEAN CORPUSCULAR HGB CONC 32.9 g/dl (33.0-37.0); MEAN PLATELET VOLUME 9.5 fl (9.6-12.3); MONO % 7.3 % (3.0-9.0); NEUT # 11.3 10*3/uL (2.3-7.9); NEUT % 83.7 % (47.0-73.0); PLATELET COUNT AUTOMATED 266 10*3/uL (130-400); RED BLOOD COUNT 4.21 10*6/uL (4.10-5.10); RED CELL DISTRI WIDTH 13.2 % (0-14.5); WHITE BLOOD COUNT 13.5 10*3/uL (4.8-10.8)
--- NOTE | 2018-10-20 06:28 | NUR ---
MOUTH CARE PROVIDED PATIENT WHILE PASSING MORNING MEDS. LUNGS AUSCULTATED WELL. CLEAR THROGUHOUT, NON-LABORED ON ROOM AIR. BED IS IN A LOW POSITION, SIDE RAILS UPX2, CALL LIGHT IN REACH.
[2018-10-20 06:49] LABS: ALBUMIN 1.9 gm/dl (3.1-4.5); ALKALINE PHOSPHATASE 66 U/L (45-117); CHLORIDE 117 mmol/L (98-107); CREATININE 0.54 mg/dL (0.55-1.02); PHOSPHOROUS 2.6 mg/dL (2.5-4.9); POTASSIUM 3.7 mmol/L (3.5-5.1); SGOT/AST 53 IU/L (3-35); SGPT/ALT 33 U/L (12-78); SODIUM 151 mmol/L (136-145); TOTAL PROTEIN 6.4 gm/dL (6.4-8.2)
[2018-10-20 06:50] LABS: BUN 32 mg/dl (7-24)
--- NOTE | 2018-10-20 07:35 | NUR ---
24 HR chart check completed.
[2018-10-20 08:00] VITALS: BP 144/66
--- NOTE | 2018-10-20 09:00 | NUR ---
Fur Stretcher in to see patient. She has snoring respirations and is not able to answer any questions. Discharge plan undecided at this time.
--- NOTE | 2018-10-20 10:27 | NUR ---
PHYSICAL THERAPY Discussed case with nursing. Nursing reports PT not approrpaite at this time. In d/c planning, hospice being comsidered. Will check patients status at a later date. Thank you for this referral. Evangelina Child,PT
--- NOTE | 2018-10-20 10:29 | NUR ---
DAUGHTER UPDATED ON PT'S POOR CONDITION.
--- NOTE | 2018-10-20 12:18 | NUR ---
SPEECH PATHOLOGY Treatment was attempted this pm. Upon arrival, patient was found resting in bed. Breathing appeared labored. She was able to awaken to her name, but with weak response. She reported that she was not feeling well but did not state what was wrong. She closed her eyes and went back to sleep. Will attempt treatment again later. MILDRED CARRILLO MSCCC-YARN WASHER
--- NOTE | 2018-10-20 14:03 | NUR ---
SPEECH PATHOLOGY Second attempt at treatment made this pm. Patient was asleep and snoring. She did not respond to her name. Patient was pale and ill appearing. Will attempt again tomorrow as appropriate. MILDRED CARRILLO MSCCC-PARTY PLANNER
[2018-10-20 16:00] VITALS: BP 146/60
--- NOTE | 2018-10-20 19:58 | NUR ---
24 HR chart check completed.
--- NOTE | 2018-10-20 20:00 | NUR ---
FAMILY PRESENT AT BEDSIDE
--- NOTE | 2018-10-20 21:30 | NUR ---
EYES OPEN, PUPILS FIXED AND PIN-POINT. NO VERBAL RESPONSE. CECI PAULA RESPIRATIONS. LUNGS DIMINISHED. PULSE OX 96% RA. TRACE BLE EDEMA WITH HEEL PROTECTORS IN PLACE. MIKE PATENT. IV FLUIDS INFUSING PER ORDER. CALL LIGHT WITHIN REACH. BED ALARM MAINTAINED FOR SAFETY
--- NOTE | 2018-10-20 22:56 | NUR ---
MEDICATED WITH MORPHINE TO ASSIST WITH COMFORT AND RESP STATUS. IV FLUIDS INFUSING. BED ALARM MAINTAINED
[2018-10-21] VITALS: BP 141/59
--- NOTE | 2018-10-21 | NUR ---
RESTING, EYES REMAIN OPEN. PULSE OX 96% RA. IV FLUIDS MAINTAINED PER ORDER. BED ALARM IN PLACE
--- NOTE | 2018-10-21 03:40 | NUR ---
PROVIDED WITH MORPHINE TO ASSIST WITH COMFORT AND RESP STATUS. WILL MONITOR
--- NOTE | 2018-10-21 05:00 | NUR ---
RESTING, EYES REMAIN OPEN WITH FIXED STARE. CECI PAULA RESPIRATIONS. BED ALARM IN PLACE
[2018-10-21 06:05] LABS: BUN 29 mg/dl (7-24); CHLORIDE 119 mmol/L (98-107); CREATININE 0.49 mg/dL (0.55-1.02); POTASSIUM 4.3 mmol/L (3.5-5.1); SODIUM 152 mmol/L (136-145)
[2018-10-21 08:00] VITALS: BP 181/98
--- NOTE | 2018-10-21 09:00 | NUR ---
Frozen Yogurt Maker in to see patient. Discharge plan undecided at this time.
[2018-10-21 10:40] VITALS: BP 150/80
--- NOTE | 2018-10-21 13:17 | NUR ---
PHYSICAL THERAPY PAtient continues to be medically inappropriate for PT. Evangelina Child,PT
--- NOTE | 2018-10-21 13:36 | NUR ---
ADMINISTERED MORPHINE PRESCRIBED. WILL MONITOR PT FOR EFFECTIVENESS.
--- NOTE | 2018-10-21 13:39 | NUR ---
PT MOVED FROM ROOM 412-1 TO ROOM 426.
--- NOTE | 2018-10-21 13:39 | NUR ---
SPOKE TO DR BURRELL TO INFORM HIM THAT PTS CONDITION HAS WORSENED. HE STATED HE WAS IN TO SEE PT AND IS AWARE. PT VERY LETHARGIC. RESPS 28. ALL OTHER VITALS ARE WNL. NO NEW ORDERS
--- NOTE | 2018-10-21 15:04 | NUR ---
SPEECH THERAPY Patient attempted to be seen this afternoon for treatment. Patient resting upon clinician kristian. Patient opened her eyes in response to her name but was unable to maintain alertness. Patient did not respond to additional attempts of verbal and tactile stimuli and remained asleep. Patient not able to be treated this date in current state. Speech Therapy to continue with plan of care as appropriate. Romana Go MA CF-DIRECTOR OF VOCATIONAL GUIDANCE
[2018-10-21 16:00] VITALS: BP 144/70
--- NOTE | 2018-10-21 16:12 | NUR ---
PTS DAUGHTER IN TO SEE HER. DAUGHTER STATED SHE WANTS TO HAVE [facility] COME IN [facility]OMOR[facility] TO ADMIT PT TO HOSPICE SERVICES. I SPOKE TO DEVANTE AT [facility] AND SHE STATED A NURSE WILL BE IN TOMORROW MORNING. ALL REQUESTED PT INFORMATION WAS FAXED TO HOSPICE. PTS DAUGHTER JOSEMANUEL IS AWARE AND STATES SHE AND HER FAMILY WILL BE HERE IN THE MORNING.
[2018-10-21 20:00] VITALS: BP 148/69
[2018-10-22] VITALS: BP 155/54
--- NOTE | 2018-10-22 05:51 | NUR ---
PT MEDICATED WITH PRN PAIN MED FOR SLIGHT AGITATION AND MOANING. WILL CONTINUE TO MONITOR
--- NOTE | 2018-10-22 07:00 | NUR ---
PATIENT OBTAINED FROM [facility]O. PATIENT IS LETHARGIC AT THIS TIME, NON-RESPONSIVE EXCEPT FOR MOANING WHEN REPOSITIONING. NO DISTRESS NOTED AT THIS TIME. RESP ARE ERND ON ROOM AIR. MIKE CATH IS PATENT, YELLOW/CLEAR URINE. BED IS LOCKED IN LOWEST POSITION, ALARM MAINTAINED. CALL LIGHT LEFT WITHIN REACH.
[2018-10-22 07:20] LABS: BUN 30 mg/dl (7-24); CHLORIDE 123 mmol/L (98-107); CREATININE 0.49 mg/dL (0.55-1.02); POTASSIUM 3.8 mmol/L (3.5-5.1); SODIUM 153 mmol/L (136-145)
[2018-10-22 08:00] VITALS: BP 156/66
--- NOTE | 2018-10-22 08:25 | NUR ---
PATIENT MEDICATED WITH IV MORPHINE FOR NOTED AGGITATION/PAIN WITH REPOSITIONING. WILL MONITOR.
--- NOTE | 2018-10-22 09:25 | NUR ---
MORPHINE APPEAR TO BE EFFECTIVE. PATIENT RESTING COMFOTABLY, EYES CLOSED.
--- NOTE | 2018-10-22 09:47 | NUR ---
INFROMED OF RECTAL TEMP OF 100.7 WITH NO ORDERS IN PLACE. NEW ORDERS PLACED PER DOCTOR WISHES.
--- NOTE | 2018-10-22 10:40 | NUR ---
RECTAL TEMP TAKEN AT THIS TIME OF 100.2. ACETAMINOPHEN SUPP GIVEN. WILL MONITOR
--- NOTE | 2018-10-22 11:21 | NUR ---
INFORMED THAT PATIENT HAS BEEN ACCEPTED GIP WITH HOSPICE. STATED RECOMMENDATIONS FROM HOSPICE. STATES HE WILL COME IN TODAY AND CAHNGE THE ORDERS HIMSELF AND WILL DISCHARGE/RE-ADMIT UNDER HOSPICE ONCE HE COMES IN
[2018-10-22 12:24] LABS: BASO % 0.1 % (0.0-1.0); EOS % 0.1 % (1.0-4.0); HEMATOCRIT 39.8 % (37.0-47.0); HEMOGLOBIN 12.7 g/dl (12.0-16.0); LYMPH # 1.2 10*3/uL (1.3-4.4); LYMPH % 9.2 % (27.0-41.0); MEAN CELL VOLUME 101.3 fl (81.0-99.0); MEAN CORPUSCULAR HGB 32.3 pg (27.0-31.0); MEAN CORPUSCULAR HGB CONC 31.9 g/dl (33.0-37.0); MEAN PLATELET VOLUME 9.5 fl (9.6-12.3); MONO # 1.2 10*3/uL (0.1-1.0); MONO % 8.7 % (3.0-9.0); NEUT # 10.9 10*3/uL (2.3-7.9); NEUT % 81.2 % (47.0-73.0); PLATELET COUNT AUTOMATED 233 10*3/uL (130-400); RED BLOOD COUNT 3.93 10*6/uL (4.10-5.10); RED CELL DISTRI WIDTH 13.3 % (0-14.5); WHITE BLOOD COUNT 13.4 10*3/uL (4.8-10.8)
[2018-10-22 12:36] LABS: ALBUMIN 1.8 gm/dl (3.1-4.5); ALKALINE PHOSPHATASE 82 U/L (45-117); BUN 30 mg/dl (7-24); CHLORIDE 125 mmol/L (98-107); CREATININE 0.49 mg/dL (0.55-1.02); POTASSIUM 3.7 mmol/L (3.5-5.1); SGOT/AST 51 IU/L (3-35); SGPT/ALT 37 U/L (12-78); SODIUM 155 mmol/L (136-145); TOTAL PROTEIN 6.1 gm/dL (6.4-8.2)
--- NOTE | 2018-10-22 13:45 | NUR ---
MOUTH CARE PROVIDED AT THIS TIME. SUCTION PROVIDED.
[2018-10-22] MEDS ORDERED: CATAPRES-TTS 30.3 MG T (14:47)
--- NOTE | 2018-10-22 14:52 | NUR ---
PATIENT DISCHARGED TO [facility]. WILL BE RE-ADMITTED [facility].
== END 2018-10-22 14:52 | disposition hospice, home (50) | DRG 871 ==
LOC: 4E 10:07
PROVIDERS: Internal Medicine; ADMIT Internal Medicine
PROC: BD1BYZZ Fluoroscopy of Mouth/Oropharynx using Other Contrast (ICD-10-PCS; principal; 2018-10-18)
DX: A41.9 Sepsis, unspecified organism (principal); E43 Unspecified severe protein-calorie malnutrition; N39.0 Urinary tract infection, site not specified; Z68.1 Body mass index [BMI] 19.9 or less, adult; R13.10 Dysphagia, unspecified; R33.9 Retention of urine, unspecified; R62.7 Adult failure to thrive; Z51.5 Encounter for palliative care; G30.1 Alzheimer's disease with late onset; Z66 Do not resuscitate; I10 Essential (primary) hypertension; E03.9 Hypothyroidism, unspecified; K21.0 Gastro-esophageal reflux disease with esophagitis; E78.2 Mixed hyperlipidemia; F02.80 Dementia in other diseases classified elsewhere, unspecified severity, without behavioral disturbance, psychotic disturbance, mood disturbance, and anxiety; E86.0 Dehydration; Z88.0 Allergy status to penicillin; Z98.891 History of uterine scar from previous surgery; Z90.710 Acquired absence of both cervix and uterus; Z90.49 Acquired absence of other specified parts of digestive tract; Z88.2 Allergy status to sulfonamides